=== PATIENT | male | born 1980 ===

== ENCOUNTER 2019-07-25 08:23 | Day surgery (SDC) | payer OTHER ==
[2019-07-25] VITALS (7 sets, daily range): BP systolic 88–124; BP diastolic 46–79
[~2019-07-25] VITALS: Ht 172.7 cm; Wt 65.1 kg
[~2019-07-25 08:23] MED LIST: IBUP-1984 PO; OMEP20TA5 PO; PROP60CA37 PO; TRAM50TA2 PO
[2019-07-25] MEDS ORDERED: propranolol 10mg tablet PO ONE (09:45)
[2019-07-25] MEDS ORDERED: DOCUMENT DATE & TIME OF BETA-BLOCKER PO ONE (09:45)
[2019-07-25] MEDS ORDERED: cefazolin/dext.iso 2gm/50ml 50 ML IV ONE (09:45)
[2019-07-25] MEDS ORDERED: ringers solution, lacted 1,000 ML IV SCH ×2 (09:45→11:13)
[2019-07-25] MEDS ORDERED: famotidine 20mg tablet PO ONE (09:45)
--- NOTE | 2019-07-25 10:20 | NUR ---
CLARIFIED WITH DR GOMEZ IF HE WANTS AN EKG. HE STATED THAT HE DOES NOT REQUIRE AN EKG.
[2019-07-25] MEDS ORDERED: fentaNYL/PF 50MCG/1 ML 2ML syringe ONE (10:42)
[2019-07-25] MEDS ORDERED: sevoflurane 250ml liquid IH ONE (10:48)
[2019-07-25] MEDS ORDERED: propofol 10mg/ml 20ml vial IV ONE (10:48)
[2019-07-25] MEDS ORDERED: dexamethasone sod phosphate 4mg/ml inj. ONE (10:52)
[2019-07-25] MEDS ORDERED: ROPIVAcaine 0.5% (5mg/ml) 30ml vial ONE (10:52)
[2019-07-25] MEDS ORDERED: LIDOcaine 2% (20mg/ml) 5ml vial ONE (10:52)
[2019-07-25] MEDS ORDERED: ondansetron/PF 4mg/2ml inj ONE (10:53)
[2019-07-25] MEDS ORDERED: ceFAZolin 1000mg inj ONE (10:57)
[2019-07-25] MEDS ORDERED: ondansetron/PF 4mg/2ml inj IV PRN (11:15)
[2019-07-25] MEDS ORDERED: morphine 4 MG/ML inj SYRINge IV PRN ×2 (11:15)
[2019-07-25] MEDS ORDERED: enalaprilat dihydrate 2.5mg/2ml vial IV PRN (11:15)
[2019-07-25] MEDS ORDERED: meperidine/PF 25mg/ml syringe IV PRN ×2 (11:15)
[2019-07-25] MEDS ORDERED: hydrALAZINE 20mg/ml inj. IV PRN (11:15)
--- NOTE | 2019-07-25 12:00 | NUR ---
Received from OR via BED , accompanied by Anesthesiologist DR HERNANDEZ and report given by Anesthesiolgist. PATIENT WAKING UP, DENIES PAIN, V/S WNL, NEUROVASCULAR CHECKS INTACT, 20G PIV RUE , SPLINT DRESSING TO LEFT FOOT CDI W/ COLD POWDER PACK W/ SCD ON. GUARDS AT BEDSIDE
--- NOTE | 2019-07-25 12:50 | NUR ---
PATIENT A&OX4, DENIES PAIN, V/S WNL, NEUROVASCULAR CHECKS INTACT, 20G PIV D/C WITH NO COMPLICATIONS OBSERVED , SPLINT DRESSING TO LEFT FOOT CDI, SCD OFF. I HAVE REVIEWED D/C INSTRUCTIONS WITH PATIENT AND GUARDS AND THEY HAVE VERBALIZED UNDERSTANDING. PATIENT D/C BACK TO [facility] WITH ALL BELONGINGS AND GUARDS GAVE TRANSPORT .
== END 2019-07-25 12:50 ==
LOC: PAS 08:23 → EEVIPCON 11:45 → PAS 12:50
PROVIDERS: ATTEND Orthopaedic Surgery
DX: S92.352A Displaced fracture of fifth metatarsal bone, left foot, initial encounter for closed fracture (principal); X58.XXXA Exposure to other specified factors, initial encounter; Y93.89 Activity, other specified; Y92.89 Other specified places as the place of occurrence of the external cause; Y99.8 Other external cause status; Z79.899 Other long term (current) drug therapy
CPT/HCPCS: 28485; 82948; C1713; J0690; J1100; J2001; J2405; J2704; J3010; J7120; A4215; A4618; A6449; A7000; J2795